=== PATIENT | female | born 1955 | race Caucasian/White ===

== ENCOUNTER 2023-01-11 05:59 | Day surgery (SDC) | payer MEDICARE, BC, SELFPAY ==
[2023-01-11] VITALS (15 sets, daily range): BP systolic 115–143; BP diastolic 56–79; PULSE 48–71; RESP 16–18; TEMP 36.2–36.7; O2SAT 93–97; BMI 32.9
[2023-01-11] MEDS: fentaNYL 100 MCG/2 ML inj IVP (05:53)
[2023-01-11] MEDS: MIDAZOLAM HCL 1 MG/ML inj IVP (05:53)
[2023-01-11] MEDS: LACTATED RINGERS 1000 ML 1,000 ML 100 ML IV ×2 (05:55→09:24)
[2023-01-11] MEDS: ACETAMINOPHEN 500 MG TABLET 1000 MG PO (06:12)
[2023-01-11] MEDS: CELECOXIB 200 MG CAPSULE PO (06:12)
[2023-01-11] MEDS: OXYCODONE (CR) 10 MG TAB.ER.12H PO (06:12)
[2023-01-11] MEDS: SODIUM CHLORIDE 0.9 % (FLUSH) 10 ML SYRINGE IVF (06:39)
--- NOTE | 2023-01-11 07:19 | SUR.PREOP ---
TIME?OUT:?0715 PT/RN/MDA?VERIFICATION?OF?SURGICAL?SITE,?PROCEDURE,?AND?CONSENT OBTAINED?PRIOR?TO?INVASIVE?PROCEDURE.VINICIUS BUTLER,PT AND CONSENT RIGHT SHOULDER
--- NOTE | 2023-01-11 07:20 | P.NB_ITS ---
Nerve Block Nerve Block Time Seen by Provider: 07:00 Date Seen: 01/11/23 Type of block requested by surgeon for post-operative analgesia: supraclavicular Side: right Time out performed: Yes Verification of patient name: Yes Verification of date of : Yes Site marking: site marked Name of person performing procedure: [place] Continuous monitoring Was continuous monitoring of O2 sat, B/P, registered nurse bone marrow transplant, recorded every 15 minutes?: Yes Procedure Checklist: sterile prep, needles and gloves Ultrasound guided. Images saved: Yes Medications given in 5ml increments after negative aspiration: Ropivicaine %: 0.5 mL: 20 Needle gauge: 22 Decadron (mg): 10 Precedex (mcg): 20 Patient tolerated procedure well: Yes Block Charges Block Charge (with Pro Fee): Brachial Plexus Use of Ultrasound Machine for Block: Yes- US Guidance/pain block
--- NOTE | 2023-01-11 07:21 | SUR.PREOP ---
PT READY FOR SURGERY RIGHT SHOULDER NERVE BLOCK IN PLACE
[2023-01-11] MEDS: CEFAZOLIN 2 GM INJ IVP (08:06)
--- NOTE | 2023-01-11 09:28 | P.ORPRC_ITS ---
Procedure Note Date of procedure: 01/11/23 Procedure: PREOPERATIVE DIAGNOSIS: Right shoulder rotator cuff tear, AC joint arthrosis, biceps tendinopathy, labral tearing POSTOPERATIVE DIAGNOSIS: Right shoulder rotator cuff tear, AC joint arthrosis, biceps tendinopathy, labral tearing NAME OF OPERATION: Right shoulder arthroscopic subacromial decompression, distal clavicle excision, mini open rotator cuff repair, biceps tenodesis, limited glenohumeral debridement SURGEON: Raz Husain MD [employer]ITY ARCHITECT: KEL Guadalupe ANESTHESIA: Supraclavicular block plus general endotracheal ESTIMATED BLOOD LOSS: 5 mL COMPLICATIONS: None SPECIMENS: None DRAINS: None PREOPERATIVE ANTIBIOTICS: Ancef 2 grams INDICATIONS: The patient is a 67-year-old with a history of right shoulder pain secondary to the above diagnoses. Despite appropriate non operative management, they continue to have symptoms. Operative intervention was recommended. The risks, benefits and expected outcomes were discussed in detail. These included but were not limited to: Infection, bleeding, injury to blood vessel or nerve, venous thromboembolism. All questions were answered to their satisfaction. PROCEDURE: A supraclavicular block was placed by Anesthesia. General anesthesia was administered. The patient was placed in the high beach chair position. The right shoulder was prepped and draped in the usual sterile fashion. The glenohumeral joint was infiltrated with 20 mL of normal saline with epinephrine. The posterior portal was established, the arthroscope was introduced. The anterior portal was established, Diagnostic arthroscopy was performed with findings as follows: The biceps has a significant amount of intra-articular tendinopathy. The superior labrum has age-appropriate degenerative fraying, the rest of the labrum is normal . Articular surfaces on the humeral head and glenoid are normal. There are no loose bodies. There is low-grade, partial-thickness tearing of the supraspinatus, longitudinal splitting of the subscap. The biceps was tenotomized with the arthroscopic scissors, the stump resected with the shaver. The superior labrum and undersurface of the supraspinatus were debrided with the shaver. The arthroscope was placed in the subacromial space, the lateral portal was established. The Arthrex [place] was used to dissect the acromion free. The CA ligament was recessed off the anterior acromion, the AC joint was exposed. The acromioplasty was performed with the bur in the posterior portal. The bur was then placed in the lateral portal and the lateral and anterior aspect of the acromion were resected. The undersurface of the distal clavicle was resected through the lateral portal. Finally, the bur was placed in the anterior portal and the remainder of the distal clavicle was resected for a total of 10 mm. An accessory anterolateral portal was placed. The subacromial/subdeltoid bursa was aggressively debrided. There is high-grade partial-thickness tearing of the bursal surface of the insertion of the supraspinatus. Arthroscopic instruments were removed. The accessory anterolateral portal was extended proximally and distally, subcutaneous dissection was taken with electrocautery to the deltoid. The deltoid was divided in line with its fibers. The static retractor was placed. The subacromial/subdeltoid bursa was debrided with the Egan scissors. The bicipital groove was opened with electrocautery and the 15 blade, delivering the biceps into the wound. We extended the dissection superiorly and posteriorly to detach the few remaining fibers of the supraspinatus, back to good infraspinatus tendon. This results in a full- thickness tear of the supraspinatus. Likewise, dissection was carried distally to release upper border of the subscap. The greater and lesser tuberosities were debrided with the [place]pert rongeur and arthroscopic bur to punctate bleeding bone. A fiber link was placed in the biceps with the scorpion. Likewise, a suture tape was placed in an inverted mattress fashion in the subscap. Two Arthrex FiberTak anchors were placed just off the articular surface over the far anterior and posterior aspect of the supraspinatus tear. Both limbs of the FiberWire and suture tape were passed using the scorpion. A fiber link was placed in the leading edge of the rotator cuff x2. We tied the 2 central FiberWire sutures over the rotator cuff. We then proceeded with a lateral row of SwiveLock anchors x 2 crossing the FiberTape and incorporating the FiberWire, fiber link, subscap and biceps sutures into the more anterior anchor. This provides an anatomic, watertight repair of the rotator cuff. There is no tension on the repair with the shoulder at 0? abduction. The wound was irrigated with normal saline off the pump. The deltoid was repaired with an 0 Vicryl in an interrupted [id number] fashion. Subc utaneous tissues were closed with a 3-0 Vicryl. Skin was closed with a 3-0 Monocryl in a subcuticular fashion. A dry dressing, polar care and sling were applied. Sponge and needle counts were correct x2. The patient tolerated the procedure well. There were no apparent complications. They were carefully transferred to the hospital bed and taken to the postanesthesia care unit in satisfactory condition. PLAN: The patient will be discharged to home. No active range of motion of the shoulder will be allowed for 6 weeks postoperatively. They can work on active range of motion of the elbow, wrist and fingers. They will follow up in the office next week for a wound check and an AP and transscapular Y-view of the shoulder prior to being seen.
--- NOTE | 2023-01-11 09:58 | W.ANESCHARGE ---
Anesthesia Charges Start Date/Time Anesthesia Start Date: 01/11/23 Anesthesia Start Time: 07:48 Stop Date/Time Anesthesia Stop Date: 01/11/23 Anesthesia Stop Time: 09:56
--- NOTE | 2023-01-11 11:45 | SUR.PHASEII ---
Pt up in recliner with minimal assist jessie pt states she is really tired cms intact pt drinking juice and eating crackers denies any nausea home soon
== END 2023-01-11 12:20 | disposition home or self-care (01) ==
PROVIDERS: PCP Family Medicine; Visit Provider Orthopaedic Surgery
PROC: (CPT 23412; principal; 2023-01-11 07:15)
DX: M75.101 Unspecified rotator cuff tear or rupture of right shoulder, not specified as traumatic (principal); M19.011 Primary osteoarthritis, right shoulder; M75.21 Bicipital tendinitis, right shoulder; S43.431A Superior glenoid labrum lesion of right shoulder, initial encounter; G89.18 Other acute postprocedural pain
CPT/HCPCS: 29826; 29824; 29828; 29822; 23412; 01630; 64415; 76942; A9270; C1713; J0330; J0690; J1100; J2250; J2405; J2704; J2795; J3010; J7120; L3670

== ENCOUNTER 2023-12-06 20:47 | Outpatient (CLI) | payer MEDICARE, BC, SELFPAY ==
--- OUTSIDE RECORDS SUMMARY | 2023-12-06 20:54 | XMS_ITS | Clinical Summary ---
Author Name Unknown Organization [email or web address] [employer] Address [place], [place] [address] Care Team Providers Care Unit Trust Manager Name Role Phone Chio Amaro MD Primary Care Provider [phone] Allergies Active Allergy Reactions Criticality Noted Date Comments Amoxicillin-Pot Clavulanate Hives High 03/15/20 07 Medications Medication Sig Dispensed Refills Start Date End Date Status triamcinolone (ARISTOCORT; KENALOG) 0.1 % creamIndications:Ch ronic eczema Apply topically to affected area(s) two times daily. 80 g 2 2 Active levothyroxine (SYNTHROID) 100 mcg tabletIndications:H ypothyroidism, unspecified type Take 1 Tablet (100 mcg) by mouth before breakfast. 90 Tablet 3 3 Active rosuvastatin (CRESTOR) 10 mg tabletIndications:H yperlipidemia, unspecified hyperlipidemia type Take 1 Tablet (10 mg) by mouth at bedtime. patient will call to fill 90 Tablet 3 3 Active cholecalciferol (Vitamin D-3) 2,000 unit capsuleIndications: Osteoporosis, unspecified osteoporosis type, unspecified pathological fracture presence Take 1 Capsule (2,000 units) by mouth once daily. 90 Capsule 3 3 Active alendronate (FOSAMAX) 70 mg tabletIndications:O steoporosis, unspecified osteoporosis type, unspecified pathological fracture presence TAKE ONE TABLET BY MOUTH ONCE A WEEK IN THE MORNING. TAKE ON EMPTY STOMACH WITH FULL GLASS OF WATER. DO NOT LIE DOWN FOR ONE HR. 12 Tablet 2 4 Active naproxen (Aleve) 220 mg tablet Take 220 mg by mouth every 12 hours if needed for Pain. Active dextran 70-hypromellose (Lubricating Tears) 0.1-0.3 % ophthalmic solution Place 1 Drop into both eyes each time if needed (Dry eyes). Active aspirin (ECOTRIN) 81 mg enteric coated tabletIndications:T IA (transient ischemic attack) Take 1 Tablet (81 mg) by mouth once daily with a meal. 4 Active miscellaneous medical supply (Blood Pressure Cuff) miscIndications:TIA (transient ischemic attack) As directed. 1 Each 4 Active losartan (COZAAR) 50 mg tabletIndications:P rimary hypertension Take 1 Tablet (50 mg) by mouth once daily. 30 Tablet 2 4 Active Calcium Citrate 250 mg calcium tabletIndications:O steoporosis, unspecified osteoporosis type, unspecified pathological fracture presence Take 2 Tablets (500 mg) by mouth two times daily with meals. 240 Tablet 5 3 11/11/19 24 Discontinued(P harmacist change per medication history (E-cancel not sent)) losartan (COZAAR) 25 mg tabletIndications:P rimary hypertension Take 1 Tablet (25 mg) by mouth once daily. 30 Tablet 3 4 11/30/19 24 Discontinued(* Medication adjustment) Active Problems Problem Noted Date Diagnosed Date TIA (transient ischemic attack) 11/11/2023 Blurry vision 11/10/2023 Malignant hypertension 11/10/2023 Dyslipidemia 11/10/2023 Hypothyroidism 11/10/2023 Headache 11/10/2023 Back pain without radiation 05/14/2022 Osteoporosis 04/28/2020 Overview: reassuring scan in 2021. Plan for drug hiatus in 2024. Sessile colonic polyp 08/28/2014 Plantar fasciitis 08/11/2014 Unspecified hypothyroidism 12/12/2008 Other and unspecified hyperlipidemia 03/15/2007 Obesity, unspecified 03/15/2007 External hemorrhoids without mention of complica tion 03/15/2007 Resolved Problems Problem Noted Date Diagnosed Date Resolved Date Elevated bilirubin 05/01/2017 8 Calculus of gallbladder with out cholecystitis without obstruction 11/10/2016 11/11/2017 Mixed hyperlipidemia 11/01/2015 017 Nausea and vomiting 06/25/2015 11/12/19 18 Status post right knee replacement 06/25/2015 11/11/2017 Arthritis of right knee 04/22/201510/24 Personal history of colonic polyps 01/01/2015 04/21/2021 Elevated LFTs 07/14/2011 10/10/2012 Cholelithiases 05/12/2009 11/11/2017 Vitamin D deficiency 10/24/2008 011 Thyrotoxicosis without menti on of goiter or other cause, without mention of thyrotoxic crisis or storm 04/15/2008 04/12/2013 Encounter for long-term (cur rent) use of other medications 03/15/2007 11/11/2017 Encounters Date Type Department Care Team Description 12/01/2023 2:07 PM CDT - 12/01/2023 11:59 PM CDT Hospital Encounter [facility] [address] [place] [address] Chio Amaro MD TIA (transient ischemic attack); Abnormal result of other cardiovascular function study 11/30/2023 9:45 AM CDT Nurse/Clinic Staff [place] [address] [place] [address] Blood Pressure 11/30/2023 9:30 AM CDT [address] [address] Lab, [facility] 11/30/2023 [address] [address] Chio Amaro MD Results (Bloop pressure) 11/30/2023 Travel 11/16/2023 8:15 AM CDT [address] [address] Chio Amaro MD Hospital F/U (DC 11.11.2023) 11/16/[address] [place] [address] Chio Amaro MD Testing 11/16/2023 Travel 11/10/2023 5:16 PM CDT - 11/11/2023 2:50 PM CDT Emergency [facility] [address] [place] [address] Dylan Mesa MD Drevlow, Geovani Brerios, Andi Sidhu MBBS [place]ardsley, Jonathan Philip, Modesto Shukla MBBS Diplopia (Primary Dx); Hypertension, unspecified type; TIA (transient ischemic attack) Discharge Disposition: Home Self Care 11/10/2023 Travel from Last 3 Months Immunizations Name Administration Dates Next Due COVID-19 vaccine (Moderna Garcia basia 50mcg/0.25mL) PF, MDV 05/13/2022 Influenza Virus, Unspecified 05/20/2015,07/03/20 13 Influenza, IIV3 (Age >=3 years) 05/06/2016,05/16,04/20/2009 Influenza, IIV4 04/09/2019,06/14/2018,05/03/2013 Influenza, IIV4 (=>6mos) MDV 05/05/2017,05/06/20 16,05/20/2015 Influenza, Inactivated AIIV4 (Age 65+ Years) Preserv Free 05/09/2023,05/12/2022,04/29/2022,2020,04/11/2020 Pneumococcal Poly,23-Valent (Pneumovax) 04/21/2021 Pneumococcal conj 13-Valent (Prevnar 13) 04/11/2020 Td (Age >=7 Years) 03/24/2004 Tdap 10/09/2012 Tuberculin (PPD) 03/22/2012 Zoster (Zostavax-ZVL, live) 04/25/2017 Family History Medical History Relation Name Comments No Known Problems Brother No Known Problems Daughter Heart Disease Father [place] No Known Problems Half-Brother No Known Problems Half-Sister No Known Problems Maternal Aunt No Known Problems Maternal Grandfather Heart Disease Maternal Grandmother No Known Problems Maternal Uncle Cancer-colon Mother Cancer-ovarian Mother No Known Problems Other Stroke Paternal Aunt No Known Problems Paternal Grandfather Heart Disease Paternal Grandmother [place] No Known Problems Paternal Uncle No Known Problems Sister Good Health Son x2 Relation Name Status Comments Brother Daughter Father (Age 48) [place] Half-Brother Half-Sister Maternal Aunt Maternal Grandfather Maternal Grandmother Maternal Uncle Mother (Age 66) colon canc er Other Paternal Aunt Paternal Grandfather Paternal Grandmother Paternal Uncle Sister Son Social History Tobacco Use Types Packs/Day Years Used Date Smoking Tobacco: Never Smokeless Tobacco: Never Tobacco Cessation:Counseling Given: Yes Alcohol Use Standard Drinks/Week Comments Never 0 (1 standard drink = 0.6 oz pur e alcohol) PHQ-2 Answer Date Recorded PHQ-2 TOTAL SCORE 0 05/16/2023 Social Connections Answer Date Recorded Frequency of Communication with Friends and Fami ly 0 11/10/2023 Financial Resource Strain Answer Date R ecorded Difficulty of Paying Living Expenses 3 11/10/2023 Difficulty of Paying Living Expenses Not on file 11/10/2023 Food Insecurity Answer Date Recorded Worried About Running Out of Food in the Last Ye ar 1 11/10/2023 Transportation Needs Answer Date Record ed Lack of Transportation (Medical) 1 11/10/2023 Housing Stability Answer Date Recorded Unable to Pay for Housing in the Last Year 1 11/10/2023 Sex and Gender Information Value Date Recorded Sex Assigned at Not on file Gender Identity Not on file Sexual Orientation Not on file Obstetrics History Para Term AB IAB SAB Ectopic Multiple Livin g Live Births 3 2 2 1 1 2 Date Outcome GA Total Labor Labor/2nd/3rd Weight Sex Delivery Anes PTL Charleen A1 A5 Name Cl in SAB Term Term Last Filed Vital Signs Vital Sign Reading Time Taken Comments Blood Pressure 163/82 12/01/2023 2:23 PM CDT Pulse 74 12/01/2023 2:23 PM CDT Temperature 36.7 ??C (98 ??F) 11/11/2023 7:57 AM CDT Respiratory Rate 16 11/11/2023 7:57 AM CDT Oxygen Saturation 99% 12/01/2023 2:21 PM CDT Inhaled Oxygen Concentration - - Weight 90.5 kg (199 lb 8 oz) 11/16/2023 8:15 AM CDT Height 165.1 cm (5' 5) 11/10/2023 9:45 PM CDT Body Mass Index 33.2 11/10/2023 9:45 PM CDT Plan of Treatment Upcoming Encounters Date Type Department Care Team (Late st Contact Info) Description 12/14/2023 8:15 AM CDT Nurse/Clinic Staff Only [facility] [address] [facility] [place] [address] Health Maintenance Due Date Last Done Comments Zoster (shingles) series for age 50+ (2 of 3) 06/20/2017 04/25/2017 Tetanus booster 10/09/2022 10/09/2012, 03/24/2004 Influenza for age 65+ 03/25/2024 05/09/2023 , 05/12/2022, 04/29/2022, Additional history exists BMI (ht and wt on same day) for age 18+ 05/16/2024 05/16/2023, 01/04/2023, 05/14/2022, Additional history exists Medicare Wellness for age 65+ 05/16/2024, 05/14/2022, 04/21/2021, Additional history exists Depression screening for age 12+ 05/17/2024 05/17/2023, 05/16/2023, 05/14/2022, Additional history exists Mammogram for age 45-75 07/05/2024 07/05/20, 06/30/2022, 05/08/2021, Additional history exists Colonoscopy through age 75 02/11/202502/11, 12/30/2014, 12/30/2014, Additional history exists Lipids for age 45-75 11/10/2028 11/11/2023, 05/09/2023, 05/14/2022, Additional history exists Tdap Completed 10/09/2012 Hepatitis C screening for ag e 18-79 Completed 06/23/2017 Pneumococcal series for age 65+ Completed , 04/11/2020 DEXA/DXA scan for age 65+ Completed 06/30/2022, 08/2019 COVID-19 vaccine series Completed 05/09/20, 05/13/2022, 05/13/2022, Additional history exists Medical Devices Implanted Type Area [employer] Device Identifier Shelf Expiration Date Model / Serial / Lot Cement Simplex P#6191-1-010 - [id number] Implanted:Qty: 2 on 06/24/2015 by Raz Husain MD at [facility] Right: Knee [employer] 02/22/2017 6191-1-010 / / [id number] Description:Simplex Cement [id number] - [id number] Implanted:Qty: 1 on 06/24/2015 by Raz Husain MD at [facility] Right: Knee [employer] 03/03/2025 [id number] / / [id number] Description:size 3, right JAMIL URNEY NONPOROUS TIBIAL BASEPLATE [id number] - [id number] Implanted:Qty: 1 on 06/24/2015 by Raz Husain MD at [facility] Right: Knee [employer] 04/22/2025 [id number] / / [id number] Description:Margarita Patella Component [id number] - [id number] Implanted:Qty: 1 on 06/24/2015 by Raz Husain MD at [facility] Right: Knee [employer] 04/14/2025 [id number] / / [id number] Description:Journey Femoral Component [id number] - [id number] Implanted:Qty: 1 on 06/24/2015 by Raz Husain MD at [facility] Right: Knee [employer] 12/23/2024 [id number] / / [id number] Description:Steve Articula r Insert Procedures Procedure Name Priority Date/Time Associated Diagnosis Comments CTA CHEST - DUAL READ Routine 12/01/2023 3:11 PM CDT Abnormal result of other cardiovascular function study CT CARDIAC CORONARY ARTERIES DUAL READ Routine 12/01/2023 3:11 PM CDT TIA (transient ischemic attack) Abnormal result of other cardiovascular function study BASIC METABOLIC PANEL Routine 11/30/2023 9:31 AM CDT Primary hypertension US CAROTID DUPLEX BILATERAL Routine 11/11/2023 10:41 AM CDT MR HEAD BRAIN ORBITS WWO Routine 11/11/2023 9:40 AM CDT ECHO TTE COMPLETE WO CONTRAST Routine 11/11/2023 8:50 AM CDT SCAN-CARDIAC STRIP 11/11/2023 8: 04 AM CDT PLATELET ESTIMATE Timed 11/11/2023 5:4 9 AM CDT RED CELL MORPHOLOGY Timed 11/11/2023 5 :49 AM CDT LIPID PANEL Early AM 11/11/2023 5:49 AM CDT BASIC METABOLIC PANEL Early AM 11/11/2023 5:49 AM CDT CBC W PLT NO DIFF Early AM 11/11/2023 5:4 9 AM CDT SCAN-CARDIAC STRIP 11/10/2023 11 :43 PM CDT TROPONIN T (HS) ONE TIME Timed 11/10/2023 7:43 PM CDT EKG 12 LEAD STAT 11/10/2023 6:[address] ANGIO HEAD AND NECK CAROTID STAT 11/10/2023 5:[address] HEAD BRAIN WO STAT 11/10/2023 5:58 PM CDT HEMOGLOBIN A1C SCREENING VINNY 11/10/2023 5:40 PM CDT TROPONIN T (HS) ACUTE W/2HR REFLEX VINNY 11/10/2023 5:40 PM CDT PLATELET ESTIMATE STAT 11/10/2023 5:4 0 PM CDT RED CELL MORPHOLOGY STAT 11/10/2023 5 :40 PM CDT TSH STAT 11/10/2023 5:40 PM CDT BASIC METABOLIC PANEL STAT 11/10/2023 5:40 PM CDT CBC W PLT NO DIFF STAT 11/10/2023 5:4 0 PM CDT XR MAMMO STACY BILAT SCREEN Routine 07/05/2023 10:09 AM LOOM CLEANER Encounter for screening mammogram for malignant neoplasm of breast XR DXA BONE DENSITY 2 SITES AXIAL Routine 06/30/2022 10:01 AM LOOM CLEANER Osteoporosis, unspecified osteoporosis type, unspecified pathological fracture presence COLONOSCOPY 02/12/2020 8:06 AM CDT ANTI HCV Routine 06/23/2017 3:36 PM LOOM CLEANER Elevated bilirubin from Last 3 Months or Most Recently Relevant to Health Maintenance Results * CT CARDIAC CORONARY ARTERIES DUAL READ (12/01/2023 3:11 PM CDT) Anatomical Region Laterality Modality HEART Computed Tomogra phy 12/01/2023 3:12 PM CDT Narrative 12/02/2023 12:05 PM CDT ?[facility] ? Cardiac CT Report ??MRN: ?[id number] ?Name: ? LETTY CASH ?: ?Scan Date: ?Accession Number: ?[id number] ?Status: ?Final ? Electronically signed by Dylan Collazo 15:35:42 VITALS HEIGHT: 65 in ?(165 cm) WEIGHT: 199 lbs ?(90 kgs) BSA: 1.97 m^2 BMI: 33 kg/m^2 BP: 163 / 82 mmHg BASELINE HR: 65 BPM HEART RHYTHM: Normal Sinus Rhythm FINAL IMPRESSION [place] Coronaries: ?1. Normal epicardial coronary arteries without atherosclerosis. 2. Normal caliber ascending aorta. -Ao arch has mild atheromatous change. -Descending thoracic aorta is normal caliber with mild atheroma -No acute aortic pathology. RECOMMENDATIONS: Please see separate radiology report. STUDY QUALITY: Study quality is good. CAD-RADS: CAD-RADS Classification 0 (0% stenosis). CALCIUM SCORING: Total coronary artery calcium score 0. DOMINANCE: Right dominant coronary artery system. LM: The LM is normal. LAD: The LAD is normal. D1: The first diagonal is normal. D2: The second diagonal is normal. LCX: The LCx is normal. OM1: The first obtuse marginal is normal. RCA: The RCA is normal. RIGHT PDA: The right PDA is normal. RIGHT PLB: The right posterolateral branch is normal. OTHER FINDINGS: Asc Ao 28 x 28 mm Ao arch has mild atheromatous change. Descending thoracic aorta is normal caliber with mild atheroma No acute aortic pathology. CALCIUM SCORING TABLE . . ? Number of Lesions Pattern of Calcium Volume Total Score +-------+ + +--------+ + LM ? 0 ? 0 LAD ? 0 ? 0 LCx ? 0 ? 0 RCA ? 0 ? 0 Ramus ? 0 ? 0 '-------+ + +--------+ ' SCAN INFO TEST TYPE: ??Calcium score, Coronary CT Angiography SCANNER MASTER PILOT: ??SIEMENS SCANNER MODEL: ??[employer] DOSE REDUCTION ALGORITHM: ??Prospective/Qrss-ryb-itigt, High-pitch (flash) PHASE UNITS: ??% START PHASE: ??65 % END PHASE: ??75 % EKG GATED: ??Yes PRE-CONTRAST: ??Yes POST-CONTRAST: ??Yes 3D RECONSTRUCTION: ??Yes GENERAL ?CONTRAST AGENT ?CONTRAST AGENT USED?: ??Yes ?TYPE: ??Omnipaque 350 ?DOSE: ??130 ml ?RATE: ??6.5 ml/s ?ROUTE: ??IV ?ARM: ??Right ?BOLUS TECHNIQUE: ??Biphasic ?SERUM CREATININE: ??0.86 mg/dL ?CREATININE DATE: ?CT CONTRAST REACTION: ??None ?MEDICATION ADMINISTERED DURING SCAN ?TYPE: ??Nitroglycerin, sublingual, B-Blockers ?NITROGLYCERIN, TOTAL DOSE: ??0.8 mg ?B-BIN TYPE: ??Oral, IV ?B-BIN NAME, ORAL: ??Metoprolol tartrate ?B-BIN NAME, IV: ??Metoprolol tartrate ?B-BLOCKERS, ORAL DOSE: ??100 mg ?B-BLOCKERS, IV DOSE: ??5 mg ?NUMBER OF DOSES: ??1 ?RADIATION DOSE ?DLP: ??224 ?KV: ??110 ?SETUP ?PATIENT TYPE: ??Outpatient ?REASON(S) FOR SCAN: ??Chest pain, Shortness of breath ?REFERRING PHYSICIAN: ??CHIO AMARO ?ATTENDING PHYSICIAN: ??CHIO AMARO ?TECHNOLOGIST: ??Latanya Curry Patient Account ?[id number] ICD10 Codes ?G45.9, R94.39 Report generated by Pre[employer], a product of [employer] Over read: Findings: No lower central pulmonary emboli. ??No lower hilar adenopathy. The visualized portions of the lungs show no focal pulmonary opacities. ?? No pneumothorax. Degenerative changes of the spine. A few sclerotic lesions in the sternum. ??No other bony or soft tissue abnormalities identified. Impression: No acute abnormalities of the extracardiac structures identified. A few sclerotic lesions in the sternum may represent bony metastases. Recommend CT scan of the chest, abdomen, and pelvis for more complete evaluation. Chio Amaro MD CT * CTA CHEST - DUAL READ (12/01/2023 3:11 PM CDT) Anatomical Region Laterality Modality CHEST Computed Tomogra phy 12/01/2023 3:12 PM CDT Impressions 12/02/2023 9:08 AM CDT 1. Please see separate dictation for all cardiac and arterial structures. 2. No suspicious incidental non cardiovascular findings. Please note that all CT scans at this facility use dose modulation, iterative reconstruction, and/or weight-based dosing when appropriate to reduce radiation dose to as low as reasonably achievable. Dictated by Gaurav Hussein MD @ 12/01/2023 8:43:58 PM (Electronic Signature) Narrative 12/02/2023 9:08 AM CDT ?[facility] ? Cardiac CT Report ??MRN: ?[id number] ?Name: ? LETTY CASH ?: ? 1955- ?Scan Date: ?Accession Number: ?[id number] ?Status: ?Final ? Electronically signed by Dylan Collazo 15:35:42 VITALS HEIGHT: 65 in ?(165 cm) WEIGHT: 199 lbs ?(90 kgs) BSA: 1.97 m^2 BMI: 33 kg/m^2 BP: 163 / 82 mmHg BASELINE HR: 65 BPM HEART RHYTHM: Normal Sinus Rhythm FINAL IMPRESSION [place] Coronaries: ?1. Normal epicardial coronary arteries without atherosclerosis. 2. Normal caliber ascending aorta. -Ao arch has mild atheromatous change. -Descending thoracic aorta is normal caliber with mild atheroma -No acute aortic pathology. RECOMMENDATIONS: Please see separate radiology report. STUDY QUALITY: Study quality is good. CAD-RADS: CAD-RADS Classification 0 (0% stenosis). CALCIUM SCORING: Total coronary artery calcium score 0. DOMINANCE: Right dominant coronary artery system. LM: The LM is normal. LAD: The LAD is normal. D1: The first diagonal is normal. D2: The second diagonal is normal. LCX: The LCx is normal. OM1: The first obtuse marginal is normal. RCA: The RCA is normal. RIGHT PDA: The right PDA is normal. RIGHT PLB: The right posterolateral branch is normal. OTHER FINDINGS: Asc Ao 28 x 28 mm Ao arch has mild atheromatous change. Descending thoracic aorta is normal caliber with mild atheroma No acute aortic pathology. CALCIUM SCORING TABLE . . ? Number of Lesions Pattern of Calcium Volume Total Score +-------+ + +--------+ + LM ? 0 ? 0 LAD ? 0 ? 0 LCx ? 0 ? 0 RCA ? 0 ? 0 Ramus ? 0 ? 0 '-------+ + +--------+ ' SCAN INFO TEST TYPE: ??Calcium score, Coronary CT Angiography SCANNER MASTER PILOT: ??SIEMENS SCANNER MODEL: ??[employer] DOSE REDUCTION ALGORITHM: ??Prospective/Ntye-giw-mhoea, High-pitch (flash) PHASE UNITS: ??% START PHASE: ??65 % END PHASE: ??75 % EKG GATED: ??Yes PRE-CONTRAST: ??Yes POST-CONTRAST: ??Yes 3D RECONSTRUCTION: ??Yes GENERAL ?CONTRAST AGENT ?CONTRAST AGENT USED?: ??Yes ?TYPE: ??Omnipaque 350 ?DOSE: ??130 ml ?RATE: ??6.5 ml/s ?ROUTE: ??IV ?ARM: ??Right ?BOLUS TECHNIQUE: ??Biphasic ?SERUM CREATININE: ??0.86 mg/dL ?CREATININE DATE: ?CT CONTRAST REACTION: ??None ?MEDICATION ADMINISTERED DURING SCAN ?TYPE: ??Nitroglycerin, sublingual, B-Blockers ?NITROGLYCERIN, TOTAL DOSE: ??0.8 mg ?B-BIN TYPE: ??Oral, IV ?B-BIN NAME, ORAL: ??Metoprolol tartrate ?B-BIN NAME, IV: ??Metoprolol tartrate ?B-BLOCKERS, ORAL DOSE: ??100 mg ?B-BLOCKERS, IV DOSE: ??5 mg ?NUMBER OF DOSES: ??1 ?RADIATION DOSE ?DLP: ??224 ?KV: ??110 ?SETUP ?PATIENT TYPE: ??Outpatient ?REASON(S) FOR SCAN: ??Chest pain, Shortness of breath ?REFERRING PHYSICIAN: ??CHIO AMARO ?ATTENDING PHYSICIAN: ??CHIO AMARO ?TECHNOLOGIST: ??Latanya Curry [employer] Patient Account ?[id number] ICD10 Codes ?G45.9, R94.39 Report generated by Precession, a product of [employer] For Patients: As a result of the 21st Century Cures Act, medical imaging exams and procedure reports are released immediately into your electronic medical record. ??You may view this report before your referring provider. ?? If you have questions, please contact your health care provider. OVER-READ ? OVER-READ ?OVER-READ OVER-READ: DETAILED RADIOLOGY EXTRACARDIAC OVER-READ OF CARDIAC CT 12/01/2023 INDICATION: Over-read of non-cardiovascular structures. COMPARISON: None available. TECHNIQUE: CTA of the heart and mediastinum performed per [facility] protocol. Please see Cardiology dictation for details on technique. ??100 cc Omnipaque 350. This exam is being performed in conjunction with the services provided by the [facility] ([facility]). FINDINGS: Please see separate dictation for all cardiac and arterial structures. Please also note that the scan was limited to a scan of the heart and mediastinum and large portions of the chest were not included. Thus the evaluation of below structures are limited to included portions. Visualized airways are patent. No suspicious incidental lymphadenopathy. No central pulmonary embolism. Tiny hiatal hernia. No suspicious incidental non cardiovascular findings in the upper abdomen. Limited evaluation of lung parenchyma given imaging technique. No suspicious incidental pulmonary opacities/nodules. Chio Amaro MD CT * (ABNORMAL) BASIC METABOLIC PANEL (11/30/2023 9:31 AM T) Only the most recent of3 resultswithin the time period is included. SODIUM 141 136 - 145 mmol/L 11/30/2023 10:31 AM [facility] POTASSIUM 4.4 3.5 - 5.1 mmol/L 11/30/2023 10:31 AM [facility] CHLORIDE 109(H) 98 - 107 mmol/L 11/30/2023 10:31 AM [facility] CO2,TOTAL 25 22 - 29 mmol/L 11/30/2023 10:31 AM [facility] ANION GAP 7 5 - 18 11/30/2023 10:31 AM [facility] GLUCOSE 111(H) 70 - 99 mg/dL 11/30/2023 10:31 AM [facility] CALCIUM 9.4 8.8 - 10.2 mg/dL 11/30/2023 10:31 AM [facility] BUN 22 8 - 23 mg/dL 11/30/2023 10:31 AM CDT [facility] CREATININE 0.81 0.50 - 0.90 mg/dL 11/30/2023 10:31 AM CDT [facility] BUN/CREAT RATIO 27(H) 10 - 20 10:31 AM CDT [facility] eGFR 79(L) >90 mL/min/1.7 3m2 11/30/2023 10:31 AM CDT [facility] Comment:As of 2021, eG FR is calculated by the CKD-EPI creatinine equation without race adjustment. ??eGFR can be influenced by muscle mass, exercise, and diet. ??The reported eGFR is an estimation only and is only applicable if the renal function is stable. Blood BLOOD SPECIMEN / Unknown Venipuncture / Unknown 11/30/2023 9:31 AM CDT 11/30/2023 9:31 AM CDT Chio Amaro MD CHEMISTRY [facility] [address] [place] [address] * US CAROTID DUPLEX BILATERAL (11/11/2023 10:41 AM CDT) Anatomical Region Laterality Modality CAROTID, NECK Ultrasound Impressions 11/15/2023 8:08 AM CDT ?? No hemodynamically-significant stenosis within the bilateral internal carotid arteries. Normal antegrade flow within the bilateral vertebral arteries. Spencer Silva M.D. Neuroradiologist [email or web address] PUL/rcd Narrative 11/15/2023 8:08 AM CDT Table formatting from the original result was not included. As a result of the Century Cures Act, medical imaging exams and procedure reports are released immediately into your electronic medical record. ??You may view this report before your referring provider. ??If you have questions, please contact your health care provider. BILATERAL CAROTID ULTRASOUND, 11/11/2023 INDICATION: ??Cerebral ischemia. ?? COMPARISON: ??11/10/2023. TECHNIQUE: ??The carotid circulations and the vertebral arteries in the neck were examined with gavin-scale ultrasound, color-flow and Doppler spectral analysis. Degrees of stenosis were determined using SRU 2002 Consensus Panel Criteria. FINDINGS: Gavin-scale ultrasound evaluation demonstrates no significant atheromatous plaque within the bilateral carotid circulations. ??Color Doppler evaluation demonstrates no elevated velocities. ??IC-CC ratio is 1.1 on the right and 1.2 on the left. Normal antegrade flow within the bilateral vertebral arteries. Multiphasic waveforms within the bilateral subclavian arteries. RIGHT PSV EDV CCA: Distal 77 21 ICA: ?Proximal 80 22 ??Mid 76 26 ??Distal ??86 27 ECA: 90 14 Vertebral: ?Ante 54 16 ??Retro - - Subclavian: ?Tri-Bi 94 ?Aiken - - ICA/CCA 1.12 ?? LEFT PSV EDV CCA: Distal 75 22 ICA: ?Proximal 75 20 ??Mid 93 26 ??Distal ??85 28 ECA: 59 9 Vertebral: ?Ante 51 14 ??Retro - - Subclavian: ?Tri-Bi 93 ?Aiken - - ICA/CCA 1.24 ?? [place] AGUIRRE * MR HEAD BRAIN ORBITS [facility] (11/11/2023 9:40 AM CDT) Anatomical Region Laterality Modality HEAD Magnetic Resonan ce 11/11/2023 10:1 4 AM CDT Impressions 11/11/2023 10:14 AM CDT 1. No acute intracranial abnormality. 2. Normal brain parenchymal morphology and signal intensity 3. No abnormal enhancement or enhancing lesions. 4. Dedicated sequences of the orbits demonstrates normal symmetric globes and extraocular muscles. No proptosis. No abnormal signal intensity or enhancement of the optic nerve sheath complexes. No intraconal or extraconal mass or lesion Dictated by Spencer Silva MD @ 11/11/2023 10:14:16 AM (Electronically Signed) Narrative 11/11/2023 10:14 AM CDT For Patients: ??As a result of the 21st Century Cures Act, medical imaging exams and procedure reports are released immediately into your electronic medical record. ??You may view this report before your referring provider. ??If you have questions, please contact your health care provider. INDICATION: Double vision. COMPARISON: 11/10/2023. TECHNIQUE: Multiplanar T1, T2, FLAIR and diffusion-weighted imaging. Post gadolinium T1 weighted sequences. Additional pre and post cy and sequences of the orbits with fat saturation. FINDINGS: Normal brain parenchymal morphology and signal intensity. No intracranial hemorrhage. No abnormal ventricular dilatation. Intracranial vascular flow voids are preserved. No mass effect. No midline shift. No restricted diffusion to suggest acute ischemia. No abnormal enhancement or enhancing lesions within the brain parenchyma. Dedicated sequences of the orbits demonstrates normal symmetric globes and extraocular muscles. No proptosis. No intraconal extraconal mass or lesion. No abnormal signal intensity or enhancement of the optic nerve sheath complex. Normal cavernous sinuses bilaterally. Normal appearing sella. No sellar suprasellar mass. Air-fluid level left maxillary sinus. Mucosal thickening within the remaining paranasal sinuses. Mastoid air cells are unremarkable. There is a small 8 mm mildly T2 hyperintense lesion of the right frontal calvarium (series 6, image 14) with corresponding enhancement. Review of the previous CT dimension demonstrates no expansile destructive lesion. Findings may represent a calvarial hemangioma. Procedure Note Spencer Silva MD, PhD - 11/11/2023 For Patients: As a result of the Cures Act, medical imagingexams and procedure reports are released immediately into your electronicmedical record. You may view this report before your referring provider.If you have questions, please contact your health care provider. INDICATION: Double vision. COMPARISON: 11/10/2023. TECHNIQUE: Multiplanar T1, T2, FLAIR and diffusion-weighted imaging. Post gadoliniumT1 weighted sequences. Additional pre and post cy and sequences of the orbits with fatsaturation. FINDINGS: Normal brain parenchymal morphology and signal intensity. No intracranialhemorrhage. No abnormal ventricular dilatation. Intracranial vascular flowvoids are preserved. No mass effect. No midline shift. No restricted diffusion to suggest acute ischemia. No abnormal enhancement or enhancing lesions within the brainparenchyma. Dedicated sequences of the orbits demonstrates normal symmetric globes andextraocular muscles. No proptosis. No intraconal extraconal mass orlesion. No abnormal signal intensity or enhancement of the optic nerve sheathcomplex. Normal cavernous sinuses bilaterally. Normal appearing sella. No sellar suprasellar mass. Air-fluid level left maxillary sinus. Mucosal thickening within theremaining paranasal sinuses. Mastoid air cells are unremarkable. There is a small 8 mm mildly T2 hyperintense lesion of the right frontalcalvarium (series 6, image 14) with corresponding enhancement. Review ofthe previous CT dimension demonstrates no expansile destructive lesion.Findings may represent a calvarial hemangioma. IMPRESSION: 1. No acute intracranial abnormality. 2. Normal brain parenchymal morphology and signal intensity 3. No abnormal enhancement or enhancing lesions. 4. Dedicated sequences of the orbits demonstrates normal symmetric globesand extraocular muscles. No proptosis. No abnormal signal intensity orenhancement of the optic nerve sheath complexes. No intraconal orextraconal mass or lesion Dictated by Spencer Silva MD @ 11/11/2023 10:14:16 AM (Electronically Signed) [place] AGUIRRE MR * ECHO TTE COMPLETE WO CONTRAST (11/11/2023 8:50 AM CDT) AORTIC VALVE MEAN PG 3 mmHg EJECTION FRACTION 71 % PEAK TR VELOCITY 2.1 m/s LVEDD 3.9 cm Anatomical Region Laterality Modality Ultrasound, Othe r 11/11/2023 7:56 AM CDT Narrative 11/11/2023 9:10 AM CDT ECHOCARDIOGRAM LTETY CASH ?Accession#: ?? [id number] : ?1955 68 years Study Date: ?? 11/11/2023 7:56:14 AM Gender: F ? BP: ? 164/72 mmHg Height: 165.00 cm ? BSA: ?1.97 m? ? ? Weight: 90.00 kg ?Tech: ? MBW ?Referring MD: MODESTO ORTEGA Site: ? [facility] ([place]) Reading Location: [facility] Patient Location: Inpatient. Procedure: 2D, Color Doppler and Spectral Doppler. Indication for study: TIA Cardiac Rhythm: Normal sinus.Study quality: Good. Final Impressions: 1. Normal left ventricular size, normal wall thickness, normal global systolic function, calculated EF of 71 %. 2. Right ventricular cavity size is normal, global systolic RV function is normal. 3. Mildly enlarged left atrium. 4. Aneurysmal interatrial septum without clear shunt by color Doppler. 5. 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 Consider CTA to further evaluate. Chamber Sizes and Function Normal left ventricular size, normal wall thickness, normal global systolic function, calculated EF of 71 %. Left atrial size is mildly enlarged. Right ventricular cavity size is normal, global systolic RV function is normal. The right atrium is normal. Right atrial area is 13 cm? ? ?. The pulmonary artery is not well visualized. The sinus of Valsalva is normal sized. The ascending aorta is normal sized. Valves, RV Pressures and Diastolic Function The aortic valve is normal in structure and trileaflet, no stenosis and trivial regurgitation. The mitral valve is normal in structure, trace mitral regurgitation. Normal diastolic function. The tricuspid valve is normal in structure. Tricuspid regurgitation is mild regurgitation. The tricuspid regurgitant velocity is 2.0 m/s, the estimated right ventricular systolic pressure is 17 mmHg plus right atrial pressure. There is normal estimated pulmonary pressure by tricuspid regurgitation velocity and right atrial pressure. The pulmonic valve is normal. Mild pulmonary regurgitation. Masses, Effusion, Shunts There is no pericardial effusion. The inferior vena cava is normal sized, respiratory size variation greater than 50%. Interatrial septum is aneurysmal. MEASUREMENTS AND CALCULATIONS 2-D Measurements and LV Function: LVID (d) 3.9 cm Planimetered EF 71 % LVID (s) 2.5 cm LV FS% (2D) ? 36 % IVS (d) ??1.0 cm LVOT diameter ?? 2.1 cm LVPW (d) 0.9 cm HR ?65 bpm Ao Sinus 3.3 cm LA Vol index ?35 ml/m2 Asc Ao ?? 3.1 cm RA area ? 13 cm? ? ? LA ? 2.8 cm RV Max 4C (d) ?? 3.9 cm Diastology: Mitral ?Tissue Doppler E Peak 0.8 m/s ??e', Septum ? 0.07 m/s A Peak 0.8 m/s ??e', Lateral ?0.09 m/s E/A ?1.0 ?E/e' Average ?? 9.71 DT ? 206 msec Aortic Valve: Vmax ? 1.3 m/s ??OLYA (V) ?? 2.18 cm? AI P 1/2 457 msec VTI ?0.30 m ?? OLYA (I) ?? 2.25 cm? ? ? LVOT V max ? 0.8 m/s ??Max PG ?7 mmHg LVOT VTI ? 0.20 m ?? Mean PG ?? 3 mmHg SV ? 68 ml ?Dim Index 0.66 SV index ? 35 ml/m? ? ? CO ?4.4 l/min AV Ejection Time 0.38 sec CI ?2.3 l/min/m? ? ? AV Flow Rate ? 179 ml/s Mitral Valve: MVA ? 3.7 cm? ? ? MV P 1/2 ??60 msec MV Mean G 1 mmHg MV VTI ?0.27 m Tricuspid Valve and estimated PA pressures: TR Vmax 2.0 m/s TAPSE 1.8 cm TR maxG 17 mmHg . This study was interpreted by an [facility] accredited facility. CC: Chio Marcos. ??Final ?? Procedure Note Herberth Sellers MD - 11/11/2023 ECHOCARDIOGRAM LETTY CASH : 1955 68 years Study Date: 11/11/2023 7:56:14 AM Gender: F BP: 164/72 mmHg Height: 165.00 cm BSA: 1.97 m? ? ? Weight: 90.00 kg Tech: PETR Referring MD: MODESTO ORTEGA Site: [facility]) Reading Location: [facility] Patient Location: Inpatient. Procedure: 2D, Color Doppler and Spectral Doppler. Indication for study: TIA Cardiac Rhythm: Normal sinus.Study quality: Good. Final Impressions: 1. Normal left ventricular size, normal wall thickness, normal globalsystolic function, calculated EF of 71 %. 2. Right ventricular cavity size is normal, global systolic RV functionis normal. 3. Mildly enlarged left atrium. 4. Aneurysmal interatrial septum without clear shunt by color Doppler. 5. 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 Consider CTA to furtherevaluate. Chamber Sizes and Function Normal left ventricular size, normal wall thickness, normal globalsystolic function, calculated EF of 71 %. Left atrial size is mildlyenlarged. Right ventricular cavity size is normal, global systolic RVfunction is normal. The right atrium is normal. Right atrial area is 13cm? ? ?. The pulmonary artery is not well visualized. The sinus of Valsalvais normal sized. The ascending aorta is normal sized. Valves, RV Pressures and Diastolic Function The aortic valve is normal in structure and trileaflet, no stenosis andtrivial regurgitation. The mitral valve is normal in structure, tracemitral regurgitation. Normal diastolic function. The tricuspid valve isnormal in structure. Tricuspid regurgitation is mild regurgitation. Thetricuspid regurgitant velocity is 2.0 m/s, the estimated right ventricularsystolic pressure is 17 mmHg plus right atrial pressure. There is normalestimated pulmonary pressure by tricuspid regurgitation velocity and rightatrial pressure. The pulmonic valve is normal. Mild pulmonaryregurgitation. Masses, Effusion, Shunts There is no pericardial effusion. The inferior vena cava is normal sized,respiratory size variation greater than 50%. Interatrial septum isaneurysmal. MEASUREMENTS AND CALCULATIONS 2-D Measurements and LV Function: LVID (d) 3.9 cm Planimetered EF 71 % LVID (s) 2.5 cm LV FS% (2D) 36 % IVS (d) 1.0 cm LVOT diameter 2.1 cm LVPW (d) 0.9 cm HR 65 bpm Ao Sinus 3.3 cm LA Vol index 35 ml/m2 Asc Ao 3.1 cm RA area 13 cm? ? ? LA 2.8 cm RV Max 4C (d) 3.9 cm Diastology: Mitral Tissue Doppler E Peak 0.8 m/s e', Septum 0.07 m/s A Peak 0.8 m/s e', Lateral 0.09 m/s E/A 1.0 E/e' Average 9.71 DT 206 msec Aortic Valve: Vmax 1.3 m/s OLYA (V) 2.18 cm? ? ? AI P 1/2 457 msec VTI 0.30 m OLYA (I) 2.25 cm? ? ? LVOT V max 0.8 m/s Max PG 7 mmHg LVOT VTI 0.20 m Mean PG 3 mmHg SV 68 ml Dim Index 0.66 SV index 35 ml/m? ? ? CO 4.4 l/min AV Ejection Time 0.38 sec CI 2.3 l/min/m? ? ? AV Flow Rate 179 ml/s Mitral Valve: MVA 3.7 cm? ? ? MV P 1/2 60 msec MV Mean G 1 mmHg MV VTI 0.27 m Tricuspid Valve and estimated PA pressures: TR Vmax 2.0 m/s TAPSE 1.8 cm TR maxG 17 mmHg . This study was interpreted by an [facility] accredited facility. CC: Chio Marcos. Final [place] AGUIRRE ECHO ORD * SCAN-CARDIAC STRIP (11/11/2023 8:04 AM CDT) Scanner OTHER * (ABNORMAL) RED CELL MORPHOLOGY (11/11/2023 5:49 AM CDT) Only the most recent of2 resultswithin the time period is included. ELLIPTOCYTES Few 11/11/2023 6:54 AM CDT [facility] RBC COMMENT Present(A) RBC morphology appears normal, RBC morphology within normal limits for newborns. 11/11/2023 6:54 AM CDT [facility] WBC REACTIVE LYMPHS Present 11/11/2023 6:54 AM CDT [facility] Blood BLOOD SPECIMEN / Unknown Venipuncture / Unknown 11/11/2023 5:49 AM CDT 11/11/2023 6:17 AM CDT [place] Ortega [facility] Performing Organization Address City/[facility] Co de Phone Number [facility] [address] [place] [address] * PLATELET ESTIMATE (11/11/2023 5:49 AM CDT) Only the most recent of2 resultswithin the time period is included. Pathologist [facility] PLATELET ESTIMATE Adequate Adequate, No estimate 11/11/2023 6:54 AM CDT [facility] Blood BLOOD SPECIMEN / Unknown Venipuncture / Unknown 11/11/2023 5:49 AM CDT 11/11/2023 6:17 AM CDT [place] [facility] HEMAT[facility] Performing Organization Address City/[facility]/ZIP Co de Phone Number [facility] [address] [place] [address] * (ABNORMAL) CBC W PLT NO DIFF (11/11/2023 5:49 AM CDT) Only the most recent of2 resultswithin the time period is included. WHITE BLOOD COUNT 3.8(L) 4.5 - 11.0 thou/cu mm 11/11/2023 6:54 AM CDT [facility] RED BLOOD COUNT 4.36 4.00 - 5.20 mil/cu mm 11/11/2023 6:54 AM CDT [facility] HEMOGLOBIN 13.0 12.0 - 16.0 g/dL 11/11/2023 6:54 AM T [facility] HEMATOCRIT 38.9 33.0 - 51.0 % 11/11/2023 6:54 AM [facility] MCV 89 80 - 100 fL 11/11/2023 6:54 AM [facility] MCH 29.8 26.0 - 34.0 pg 11/11/2023 6:54 AM T [facility] MCHC 33.4 32.0 - 36.0 g/dL 11/11/2023 6:54 AM [facility] RDW 12.6 11.5 - 15.5 % 11/11/2023 6:54 AM [facility] PLATELET COUNT 172 140 - 440 thou/cu mm 11/11/2023 6:54 AM [facility] MPV 11.0 6.5 - 11.0 fL 11/11/2023 6:54 AM [facility] Blood BLOOD SPECIMEN / Unknown Venipuncture / Unknown 11/11/2023 5:49 AM CDT 11/11/2023 6:17 AM CDT [place] AGUIRRE HEMATOLOGY [facility] [address] [place] [address] * LIPID PANEL (11/11/2023 5:49 AM CDT) CHOLESTEROL,TOTAL 164 100 - 199 mg/dL 11/11/2023 7:03 AM [facility] Comment: Cholesterol, Total Reference Ranges Desirable <200 mg/dL Borderline 200-239 mg/dL High >=240 mg/dL TRIGLYCERIDES 116 <150 mg/dL 11/11/2023 7:03 AM [facility] HDL CHOLESTEROL 58 >40 mg/dL 7:03 AM [facility] NON-HDL CHOLESTEROL 106 <145 mg/dl 11/11/2023 7:03 AM CDT [facility] CHOL/HDL RATIO 2.83 <4.50 11/11/2023 7:03 AM CDT [facility] LDL CHOLESTEROL 83 <=130 mg/dL 11/11/2023 7:03 AM CDT [facility] VLDL CHOLESTEROL 23 <=30 mg/dL 11/11/2023 7:03 AM CDT [facility] PROVIDER ORDERED STATUS RANDOM 11/11/2023 7:03 AM CDT [facility] Blood BLOOD SPECIMEN / Unknown Venipuncture / Unknown 11/11/2023 5:49 AM CDT 11/11/2023 6:17 AM CDT [place] AGUIRRE CHEMISTRY Performing Organization Address [facility] Co de Phone Number [facility] [address] [place] [address] * SCAN-CARDIAC STRIP (11/10/2023 11:43 PM CDT) Scanner OTHER * (ABNORMAL) TROPONIN T (HS) ONE TIME (11/10/2023 7:43 PM CDT) Pathologist [facility] TROPONIN T HS 12(H) 6-10 ng/L ng/L 11/10/2023 8:11 PM CDT [facility] Blood BLOOD SPECIMEN / Unknown Venipuncture / Unknown 11/10/2023 7:43 PM CDT 11/10/2023 7:45 PM CDT Dylan Mesa MD CHEMISTRY Performing Organization Address City/[facility]/ZIP Co de Phone Number [facility] [address], [place] [id number] * EKG 12 LEAD (11/10/2023 6:11 PM CDT) Pathologist [facility] Interpretation Normal sinus rhythm Moderate voltage criteria for LVH, may be normal variant Borderline ECG No previous ECGs available NO ST ELEVATION BEYOND NOW Ventricular Rate 68 BPM BEYOND NOW Atrial Rate 68 BPM BEYOND NOW P-R Interval 168 ms BEYOND NOW QRS Duration 80 ms BEYOND NOW QT 398 ms BEYOND NOW QTc 423 ms BEYOND NOW P [place] 43 degrees BEYOND NOW R [place] -14 degrees BEYOND NOW T [place] 18 degrees BEYOND NOW 11/10/2023 6:11 PM CDT 11/10/2023 6:41 PM CDT Dylan Mesa MD EKG ORD BEYOND NOW [place], [place] * CT ANGIO HEAD AND NECK CAROTID (11/10/2023 5:59 PM CDT) Anatomical Region Laterality Modality BRAIN, NECK Computed Tomogra phy 11/10/2023 6:32 PM CDT Addenda Addendum by Ac Ochoa MD on 11/11/2023 9:51 AM CDT For Patients: ??As a result of the Cures Act, medical imaging exams and procedure reports are released immediately into your electronic medical record. ??You may view this report before your referring provider. ?? If you have questions, please contact your health care provider. CLINICAL HISTORY: Diplopia. TECHNIQUE: Standard helical CT image acquisition through the head following the administration of intravenous contrast was performed. 3D and MIP reconstructions were performed at a separate workstation and permanently archived. COMPARISON: None available. FINDINGS: No intracranial proximal large vessel occlusion or flow-limiting luminal stenosis. No evidence of cerebral aneurysm. No findings to suggest an arterial-venous shunting lesion. The major dural venous sinuses and deep venous system are patent. IMPRESSION: No intracranial proximal large vessel occlusion, flow-limiting luminal stenosis, or cerebral aneurysm. Please note that all CT scans at this facility use dose modulation, iterative reconstruction, and/or weight-based dosing when appropriate to reduce radiation dose to as low as reasonably achievable. Dictated by Ac Ochoa MD @ 11/11/2023 9:51:30 AM (Electronically Signed) Impressions 11/11/2023 9:47 AM CDT Patent cervical arterial vasculature without hemodynamically significant luminal stenosis. Please note that all CT scans at this facility use dose modulation, iterative reconstruction, and/or weight-based dosing when appropriate to reduce radiation dose to as low as reasonably achievable. Dictated by Ac Ochoa MD @ 11/11/2023 9:47:09 AM (Electronically Signed) Narrative 11/11/2023 9:47 AM CDT For Patients: ??As a result of the Cures Act, medical imaging exams and procedure reports are released immediately into your electronic medical record. ??You may view this report before your referring provider. ??If you have questions, please contact your health care provider. CLINICAL HISTORY: Diplopia. TECHNIQUE: Standard helical CT image acquisition through the neck was performed after intravenous contrast bolus enhancement. 3D and MIP reconstructions were performed at a separate workstation and permanently archived. COMPARISON: None available. FINDINGS: The origins of the great vessels from the aortic arch are patent. ??The common carotid arteries are patent. No significant luminal stenoses of the proximal ICAs by NASCET criteria. The more distal cervical segments of the ICAs are patent. The origins and cervical segments of the vertebral arteries are patent. Procedure Note Ac Ochoa MD - 11/11/2023 For Patients: As a result of the Cures Act, medical imagingexams and procedure reports are released immediately into your electronicmedical record. You may view this report before your referring provider.If you have questions, please contact your health care provider. CLINICAL HISTORY: Diplopia. TECHNIQUE: Standard helical CT image acquisition through the neck was performed afterintravenous contrast bolus enhancement. 3D and MIP reconstructions wereperformed at a separate workstation and permanently archived. COMPARISON: None available. FINDINGS: The origins of the great vessels from the aortic arch are patent. Thecommon carotid arteries are patent. No significant luminal stenoses of theproximal ICAs by NASCET criteria. The more distal cervical segments of theICAs are patent. The origins and cervical segments of the vertebralarteries are patent. IMPRESSION: Patent cervical arterial vasculature without hemodynamically significantluminal stenosis. Please note that all CT scans at this facility use dose modulation,iterative reconstruction, and/or weight-based dosing when appropriate toreduce radiation dose to as low as reasonably achievable. Dictated by Ac Ochoa MD @ 11/11/2023 9:47:09 AM (Electronically Signed) Dylan Mesa MD CT * CT HEAD BRAIN WO (11/10/2023 5:58 PM CDT) Anatomical Region Laterality Modality HEAD, BRAIN Computed Tomogra phy 11/10/2023 6:23 PM CDT Impressions 11/10/2023 6:23 PM CDT No acute intracranial process per unenhanced head CT. Sinus disease as above. Please note that all CT scans at this facility use dose modulation, iterative reconstruction, and/or weight-based dosing when appropriate to reduce radiation dose to as low as reasonably achievable. Dictated by Scotty Neville MD @ 11/10/2023 6:23:01 PM (Electronically Signed) Narrative 11/10/2023 6:23 PM CDT For Patients: ??As a result of the Cures Act, medical imaging exams and procedure reports are released immediately into your electronic medical record. ??You may view this report before your referring provider. ??If you have questions, please contact your health care provider. INDICATION: Double vision. TECHNIQUE: Head CT without contrast. COMPARISON: None. FINDINGS: Periventricular areas of low attenuation, likely due to chronic small vessel ischemic changes. Generalized volume loss. Atherosclerosis. No intracranial hemorrhage. No discrete mass or mass effect. There is no midline shift. The basilar cisterns are patent. No hydrocephalus. The gavin-white matter interface is otherwise preserved. No acute osseous abnormality. No extracalvarial soft tissue abnormality. The mastoid air cells are clear. Air-fluid level within the left maxillary sinus. Bilateral maxillary mucous retention cysts. Partial opacification of the ethmoid air cells. The visualized portions of the orbits and globes are unremarkable. Procedure Note Scotty Neville MD - 11/10/2023 For Patients: As a result of the Cures Act, medical imagingexams and procedure reports are released immediately into your electronicmedical record. You may view this report before your referring provider.If you have questions, please contact your health care provider. INDICATION: Double vision. TECHNIQUE: Head CT without contrast. COMPARISON: None. FINDINGS: Periventricular areas of low attenuation, likely due to chronic smallvessel ischemic changes. Generalized volume loss. Atherosclerosis. No intracranial hemorrhage. No discrete mass or mass effect. There is nomidline shift. The basilar cisterns are patent. No hydrocephalus. Thegray-white matter interface is otherwise preserved. No acute osseous abnormality. No extracalvarial soft tissue abnormality.The mastoid air cells are clear. Air-fluid level within the left maxillarysinus. Bilateral maxillary mucous retention cysts. Partial opacificationof the ethmoid air cells. The visualized portions of the orbits and globes are unremarkable. IMPRESSION: No acute intracranial process per unenhanced head CT. Sinus disease as above. Please note that all CT scans at this facility use dose modulation,iterative reconstruction, and/or weight-based dosing when appropriate toreduce radiation dose to as low as reasonably achievable. Dictated by Scotty Neville MD @ 11/10/2023 6:23:01 PM (Electronically Signed) Dylan Mesa MD CT * (ABNORMAL) TROPONIN T (HS) ACUTE W/2HR REFLEX (11/10/2023 5:40 PM CDT) TROPONIN T HS 11(H) 6-10 ng/L ng/L 11/10/2023 7:46 PM CDT [facility] Blood BLOOD SPECIMEN / Unknown IV Start / Unknown 11/10/2023 5:40 PM CDT 11/10/2023 5:44 PM CDT [facility] - 11/10/2023 7:46 PM CDT hs-cTnT (Elecsys Troponin T Gen 5) concentration (s) above the sex-specific 99th percentile (16 ng/L or greater for males or 11 ng/L or greater for females) are indicative of myocardial injury. If initial hs-cTnT <=100 ng/L at presentation, a 0h/2h ABSOLUTE (ng/L) delta change (rising or falling) of >=10 ng/L suggests a significant change, whereas a 0h/2h delta change <=3 ng/L suggests no significant change. If initial hs-cTnT >100 ng/L at presentation, a 0h/2h/ RELATIVE (percent, %) delta change of 20% is suggested to distinguish patients with acute vs. chronic myocardial injury. There are multiple etiologies that can cause hs-cTnT increases above the 99th percentile (myocardial injury) other than acute myocardial infarction. Clinical context and careful clinical evaluation are critical for diagnosis and risk-stratification. The diagnosis of acute myocardial infarction requires a rising and/or falling pattern in hs-cTnT concentrations with at least one value above the sex-specific 99th percentile PLUS at least one of the following clinical criteria: ischemic symptoms, new or presumed new significant ST-T wave changes or new LBBB, development of pathological Q waves, imaging evidence of new loss of viable myocardium or new regional wall motion abnormality, or identification of intracoronary atherothrombosis or an acute angiographic culprit on coronary angiography. In appropriate low-risk patients with a non-ischemic electrocardiogram without active chest pain with a symptom onset >3-hours without recurrence, a single initial hs-cTnT<6 ng/L identifies patient with a very low risk in emergency department patient population. Dylan Mesa MD CHEMISTRY Performing Organization Address [facility] Co de Phone Number [facility] [address], [place] [phone] * HEMOGLOBIN A1C SCREENING (11/10/2023 5:40 PM CDT) [facility] HEMOGLOBIN A1C SCREENING 6.1 <=6.4 % 11/11/2023 7:14 AM CDT [facility] Blood BLOOD SPECIMEN / Unknown IV Start / Unknown 11/10/2023 5:40 PM CDT 11/10/2023 5:44 PM CDT [facility] - 11/11/2023 7:14 AM CDT ? (<5.7%) ?Normal ? (5.7% to 6.4%) ? Indicates prediabetes ? (>=6.5%) ? Confirms diabetes Falsely low levels may be seen with: Recent Transfusion, Recent Significant Blood Loss, Hemolytic Diseases, or Falsely elevated levels may be seen with: Untreated Anemias, Splenectomy [place] [facility]UIRRE CHEMISTRY Performing Organization Address [facility] Co de Phone Number [facility] [address] [place] [address] * TSH (11/10/2023 5:40 PM CDT) TSH 0.98 0.27 - 4.20 uIU/mL 11/10/2023 6:16 PM CDT [facility] Blood BLOOD SPECIMEN / Unknown IV Start / Unknown 11/10/2023 5:40 PM CDT 11/10/2023 5:44 PM CDT Narrative [facility] - 11/10/2023 6:16 PM CDT In Adults, TSH values between 5.00 and 10.00 uIU/ml do not necessarily indicate the presence of Hypothyroidism. Correlation with clinical findings such as presence of goiter and/or Thyroperoxidase (TPO) Antibody may be helpful. For more information please refer to ESTHELA 2004; 291: 228-238. Dylan Mesa MD CHEMISTRY [facility] [address] [place] [address] * XR MAMMO STACY BILAT SCREEN (07/05/2023 10:09 AM LOOM CLEANER) Anatomical Region Laterality Modality BREASTS, Breast Left, Breast Right Bilateral Mammography Impressions 07/05/2023 10:33 AM LOOM CLEANER ??There is no radiographic evidence for malignancy. ??Recommend annual mammograms. MAMMOGRAM ASSESSMENT: ??ACR 1 Negative PATIENTS: You will also receive a letter with your examination results in an easy to read format. ??If you have questions about your results, please contact your referring provider. Narrative 07/05/2023 10:33 AM LOOM CLEANER For Patients: As a result of the 21st Century Cures Act, medical imaging exams and procedure reports are released immediately into your electronic medical record. You may view this report before your referring provider. If you have questions, please contact your health care provider. XR MAMMO STACY BILAT SCREEN [[id number]] CLINICAL HISTORY: ??This is an asymptomatic 67 y.o. patient. INDICATION FOR EXAM: Mammogram Screening. TECHNIQUE: CC & MLO views were obtained. ??This study was evaluated with the assistance of Computer-Aided Detection. Breast Tomosynthesis was used in interpretation. COMPARISON FILM: Yes 06/30/22 Education Everytime ?? FINDINGS: ??The breasts are heterogeneously dense, which may obscure small masses. There are no dominant masses, suspicious micro calcifications or areas of architectural distortion. Chio Amaro MD MAMMO * (ABNORMAL) XR DXA BONE DENSITY 2 SITES AXIAL (06/30/2022 10:01 AM LOOM CLEANER) Anatomical Region Laterality Modality Spine, HIPS, HIPL, HIPR Computed Radiography Impressions 06/30/2022 5:16 PM LOOM CLEANER Osteopenia. ??Bone density has increased significantly since starting Alendronate in 2019. RECOMMENDATIONS: The National Osteoporosis Foundation recommends pharmacologic treatment for patients with T-scores of -2.5 or less, patients with prior history of fragility fractures, or patients with 10-year probability of greater than 3% at hips or greater than 20% of suffering major osteoporotic fractures. Recommend continued optimization of calcium and vitamin D intake through dietary means and/or supplementation and regular exercise. Continue current Alendronate (Fosamax) medication treatment. Narrative 06/30/2022 5:16 PM LOOM CLEANER For Patients: Results are automatically released to your Education Everytime ([employer]) account once available, in compliance with federal regulations. This means that you may see your results before your provider has had a chance to review them. Please allow 2-3 business days for your provider to comment on the results. XR DXA Bone Mineral Density (BMD) EXAM LOCATION: [address] [address] PATIENT NAME: Letty Cash DATE OF : 1955 EXAM DATE: 06/30/2022 REQUESTING PROVIDER: Chio Amaro MD GENDER AT : female HEIGHT: 5' 5.35 (05/14/2022) WEIGHT: ??191 lb 3 oz (05/14/2022) MENOPAUSAL STATUS: Postmenopausal RACE/ETHNICITY: White RISK FACTORS: Height Loss (2 inches or more) CURRENT MEDICATION FOR BONE LOSS: Alendronate (Fosamax) INDICATION: Follow-up of existing osteoporosis COMPARISON DATE(S): 2020 DXA scans are compared to prior studies for a patient only when the two (or more) studies were performed on the same scanner. It is not possible to compare data generated on one scanner to data from another because there are not standards in DXA equipment. This applies even if the two scanners are made by the same scrap crane operator. PROCEDURE: Dual-energy x-ray absorptiometry performed with routine technique. Reporting is completed in the form of a T-score. The T-score represents the standard deviation from peak bone mass based on young healthy adult. A Z-score is used for diagnosis in premenopausal women, and for men under the age of 50. FINDINGS: RESULT LUMBAR SPINE L1 - L4 BMD: 1.018 g/cm2 T-Score: - 1.4 Change from prior in 2020: ??Increase 9.3%. RESULTS FEMUR Left femoral neck BMD: 0.787 g/cm2 T-Score: - 1.8 Change from prior in 2020: ??Increase 3.4%. Right femoral neck BMD: 0.761 g/cm2 T-Score: - 2.0 Change from prior in 2020: ??Increase 1.7%. Left hip BMD: 0.844 g/cm2 T-Score: - 1.3 Change from prior in 2020: ??Increase 7.8%. Right hip BMD: 0.765 g/cm2 T-Score: - 1.9 Change from prior in 2020: ??Increase 3.9%. WHO criteria: Normal: T-score at or above -1 SD Osteopenia: T-score between -1.1 and -2.4 SD Osteoporosis: T-score at or below -2.5 SD Chio Amaro MD DEXA * COLONOSCOPY (02/12/2020 8:06 AM CDT) 02/12/2020 8:06 AM CDT Narrative Transcriptions Roxana Sneed, - 02/12/2020 11:22 PM CDT Patient Name: Letty Cash Procedure Date: 02/12/2020 Gender: Female Date of : 1955 Admit Type: Ambulatory Procedure: Colonoscopy Proceduralist: Roxana Sneed MD [facility] Indications/Pre-Op Diagnosis: High risk colon cancer surveillance:Personal history of colonic polyps, Last colonoscopy5 years ago Medications: Propofol per Anesthesia Procedure Description: The patient had risks, benefits and alternatives explained to andgave informed consent. The patient had a stable cardiopulmonary status and judged an adequate candidate for conscious sedation. The colonoscope was passed through the anus and advanced to thececum, identified by appendiceal orifice and ileocecal valve. Thecolonoscopy was performed without difficulty. The patient tolerated the procedure well. The quality of the bowel preparation was good. The ileocecal valve, appendiceal orifice, and rectum were photographed. Complications: No immediate complications. Estimated Blood Loss & Specimen: Estimated blood loss: none. Specimen collected - Yes and sent to Laboratory Findings: A 4 mm polyp was found in the cecum. The polyp was sessile. The polyp was removed with a hot snare. Resection and retrieval were complete. Verification of patient identification for the specimen was done. Estimated blood loss was minimal. A 3 mm polyp was found in the sigmoid colon. The polyp was sessile.The polyp was removed with a hot snare. Resection and retrieval were complete. Verification of patient identification for the specimen was done. Estimated blood loss was minimal. Non-bleeding internal hemorrhoids were found during retroflexion. The hemorrhoids were Grade II (internal hemorrhoids that prolapse butreduce spontaneously). Impressions/Post-Op Diagnosis: - One 4 mm polyp in the cecum, removed with a hot snare. Resected and retrieved. - One 3 mm polyp in the sigmoid colon, removed with a hot snare. Resected and retrieved. - Non-bleeding internal hemorrhoids. Recommendation: - Discharge patient to home. - Patient has a contact number available for emergencies. The signsand symptoms of potential delayed complications were discussed with the patient. Return to normal activities tomorrow. Written discharge instructions were provided to the patient. - High fiber diet. - Continue present medications. - Await pathology results. - Repeat colonoscopy in 5 years for surveillance based on pathology results. Moderate Sedation: Moderate (conscious) sedation was personally administered by an anesthesia professional. The following parameters were monitored:oxygen saturation, heart rate, blood pressure, and response to care. Roxana Sneed MD 02/12/2020 11:21:56 PM This report has been signed electronically. Note Initiated On: 02/12/2020 8:06 AM Roxana Sneed DO PROCEDURE ORD * ANTI HCV (06/23/2017 3:36 PM LOOM CLEANER) HEPATITIS C ANTIBODY Non-Reacti ve Non-Reacti ve 06/23/2017 9:07 PM LOOM CLEANER [facility] Blood BLOOD SPECIMEN / Unknown Venipuncture / Unknown 06/23/2017 3:36 PM LOOM CLEANER 06/23/2017 3:36 PM LOOM CLEANER Narrative [facility] - 06/23/2017 9:07 PM LOOM CLEANER Antibodies to HCV not detected; does not exclude the possibility of exposure to HCV. Mohsen Wisdom MD SEND OUTS [facility] [address] [place] [address], [place] from Last 3 Months or Most Recently Relevant to Health Maintenance Advance Directives * Full Code (Latest Code Status on File) Date Activated Date Inactivated Comments 11/10/2023 9:26 PM 11/11/2023 5:04 PM Question Answer Comments Code Status Discussion: Other * Full Code Date Activated Date Inactivated Comments 02/12/2020 7:30 AM 02/12/2020 11:24 AM Question Answer Comments Code Status Discussion: Discussed * Full Code Date Activated Date Inactivated Comments 06/25/2015 12:02 PM 06/26/2015 2:00 PM * Full Code Date Activated Date Inactivated Comments 07/09/2009 7:00 AM 07/09/2009 12:51 PM Care Teams Unit Trust Manager Relationship Specialty Start Date End Date Chio Amaro MD [address] [place] [address] PCP - General Family Practice 11/11/17
--- OUTSIDE RECORDS SUMMARY | 2023-12-06 20:54 | XMS_ITS | Continuity of Care Document ---
Author Name Unknown Organization [facility] Address [address] [address] [place] [address] Phone Care Team Providers Care Clinical Application Consultant Name Role Phone Unavailable Unavailable Unavailable Allergies, Adverse Reactions, Alerts Substance Reaction Status Criticality POTASSIUM CLAVULANATE Reaction Unknown Active No Information AMOXICILLIN TRIHYDRATE Hives Active No In formation Medications Medication Instructions Dosage Effective Dates (start - stop) Status Comments levothyroxine 112 mcg Tab Take one tablet by mouth daily - Active Lipitor 20 mg Tab Take one tablet by mouth daily - Active Procedures Procedure Date Offic/outpt E&m Estab Mod-hi 2 10 G8447 Bx Liver Needle; Percut Offic Cons New/estab Mod-hi 60 09 Routine Serum Collection G8447 Advance Directives Directive Yes / No Effective Date File Name Resuscitation Not Answered N/A N/A Life Support Not Answered N/A N/A Intubation Not Answered N/A N/A Antibiotics Not Answered N/A N/A IV Fluid Support Not Answered N/A N/A Tube Feed Not Answered N/A N/A Other Directive N/A N/A WARNING:The information contained in this section is historical and is provided for information only and does not constitute a legal document or any assurance that the information is still accurate. Please verify the information with the ashley of the legal document before using it for clinical purposes. Encounters Encounter Description Practice Location Reason(s) For Visit Diagnoses Date Provider Providers Copied on Encounter Offic/outpt E&m Estab Mod-hi 2 [facility], [address] [address], [place], [place], [id number], tel:[phone] [facility] Liver (chief complaint) Non-alcoholi c Fatty Liver 0 No Information Referring Provider: Phil Avelar MD, [address] [place] [address], [address]. tel:[phone] [facility], [address] [address], [facility] [place], [id number], tel:[phone] [facility] No Information 9 No Information Referring Provider: Phil Avelar MD, [address] [place], [address]. tel:[phone] Offic Cons New/estab Mod-hi 60 [facility], [address] [address], [place], [id number], tel:[phone] [facility] Abnormal liver tests (chief complaint) Cholelithi asis (chief complaint) Abnormal Liver Enzymes 9 No Information Referring Provider: Phil Avelar MD, [address] [place], [address]. tel:[phone] Family History Family Member Type Diagnosis Age At Onset First degree family history Problem (finding) No history of Crohn's First degree family history Problem (finding) cancer of colon First degree family history Problem (finding) malignant neoplasm of ovary First degree family history Problem (finding) No Family history of No history of Colon Polyps First degree family history Problem (finding) Heart disease First degree family history Problem (finding) No history of Ulcerative Colitis Payers Payer name Insurance type Covered democrat ID Olesya oates(s) [employer] CI [id number] Social History Type Description Quantity Date Captured Comments Alcohol Use Details No Caffeine Use Details Unknown Tobacco Use Status No Information Smoking Status No Information Sex Female Chief Complaint And Reason For Visit From encounter dated '08/01/2009 09:15'. Liver (chief complaint) Reason For Referral Reason For Referral No Information History Of Present Illness Encounter Date Complaint History Of Prese nt Illness No Information Functional Status Date Functional Assessmen t No Information Instructions Date Instruction Additional Infor mation No Information Assessments Type Assessment Date No Information Patient Care Teams Name Effective Dates (start - stop) Status Members No Information
--- NOTE | 2023-12-14 08:50 | W.PM.SLEEP ---
Sleep Study Details Details Interpreting Provider: Dilcia Date of Sleep Study: 12/06/23 Sleep Study Details: STUDY TYPE:? Hospital-based attended ? BMI:? 33.3 ORDERING PROVIDER:Julia Ledesma INDICATION: Concern about sleep apnea ? SLEEP SUMMARY:? 349 minute sleep time RESPIRATORY SUMMARY:? Mean oxygen awake 94, asleep 94, minimum 83 AHI 4 per CMS guidelines, 11 per rule 1A, supine AHI 4.9 per CMS guidelines 148.8 per rule 1A supine REM AHI 8.3 PERIODIC LIMB MOVEMENTS OF SLEEP:? None CARDIAC:? Awake 67, asleep 58 rare P 80 sees noted IMPRESSION:? Per CMS guidelines this study is within normal limits. With the rule 1A patient has mild obstructive sleep apnea. RECOMMENDATION: If patient is symptomatic could consider treatment with CPAP or dental appliance.
== END 2023-12-06 20:48 | disposition home or self-care (01) ==
LOC: SLEEP 20:52
PROVIDERS: PCP Family Medicine; Visit Provider Family Medicine
DX: G47.33 Obstructive sleep apnea (adult) (pediatric) (principal); G47.30 Sleep apnea, unspecified
CPT/HCPCS: 95810